=== PATIENT | male | born 1995 | race Two or more races ===

== ENCOUNTER → 2018-08-24 | Outpatient (REF) | payer BC ==
[2018-08-24 19:26] LABS: INFLUENZA A AMPLIFICATION NEGATIVE (NEGATIVE); INFLUENZA B AMPLIFICATION NEGATIVE (NEGATIVE)
== END ==
LOC: M LAB REF 09:55
PROVIDERS: ATTEND Physician Assistant Medical
DX: J11.1 Influenza due to unidentified influenza virus with other respiratory manifestations (principal)

== ENCOUNTER → 2019-01-02 | Outpatient (REF) | payer BC | LOC: M LAB REF 15:38 | PROVIDERS: ATTEND Physician Assistant | DX: J02.9 Acute pharyngitis, unspecified (principal) ==

== ENCOUNTER 2022-04-18 06:15 | Inpatient (IN) | payer BC, MEDICAID ==
[~2022-04-18] VITALS: Ht 177.8 cm; Wt 74.5 kg
[2022-04-18 06:52] LABS: HEMATOCRIT 48.6 % (42.0-52.0); HEMOGLOBIN 16.5 g/dl (13.5-17.5); MEAN CORPUSCULAR VOLUME 94.4 fl (80.0-96.0); PLATELET COUNT, AUTOMATED 196 10^3/uL (150-450); RED BLOOD COUNT 5.15 10^6/uL (4.30-6.10); WHITE BLOOD COUNT 5.1 10^3/uL (4.0-10.0)
[2022-04-18] MEDS ORDERED: NICOTINE 14 MG/24 HR TRANSDERMAL TD ONE (07:20)
[2022-04-18 07:25] LABS: RSV AMPLIFICATION NEGATIVE (NEGATIVE)
[2022-04-18 07:28] LABS: AMPHETAMINES LEVEL URINE NEGATIVE (NEGATIVE); BARBITURATES URINE NEGATIVE (NEGATIVE); BENZODIAZEPINES URINE NEGATIVE (NEGATIVE); CANNABINOIDS URINE POSITIVE (NEGATIVE); COCAINE METABOLITE URINE POSITIVE (NEGATIVE); METHADONE URINE NEGATIVE (NEGATIVE); OPIATES URINE NEGATIVE (NEGATIVE); PHENCYCLIDINE URINE NEGATIVE (NEGATIVE)
[2022-04-18 07:34] LABS: ALBUMIN 4.5 GM/DL (3.2-5.2); ALT/SGPT 18 U/L (12-78); BILIRUBIN,DIRECT 0.2 MG/DL (0.0-0.2); BILIRUBIN,TOTAL 0.6 MG/DL (0.2-1.0); BLOOD UREA NITROGEN 12 MG/DL (7-18); CARBON DIOXIDE LEVEL 27 MEQ/L (21-32); CHLORIDE LEVEL 108 MEQ/L (98-107); CREATININE FOR GFR 0.99 MG/DL (0.70-1.30); GLOMERULAR FILTRATION RATE > 60.0 (>60); GLUCOSE, FASTING 91 MG/DL (70-100); POTASSIUM SERUM 3.8 MEQ/L (3.5-5.1); SALICYLATE LEVEL 2.1 MG/DL (5.0-30.0); SODIUM LEVEL 141 MEQ/L (136-145); THYROID STIMULATING HORMONE 0.447 uIU/ML (0.358-3.740); TOTAL PROTEIN 7.5 GM/DL (6.4-8.2)
[2022-04-18 07:35] LABS: ACETAMINOPHEN LEVEL < 2.0 UG/ML (10.0-30.0)
[2022-04-18] MEDS ORDERED: OLANZapine ORAL DISINTEGRATING TAB 5MG PO ONE (09:00)
[2022-04-18] MEDS ORDERED: ST J300C2 PO (10:06)
[2022-04-18] MEDS ORDERED: HOME MED LIST COMPLETE! XX SCH (10:10)
[2022-04-18] MEDS ORDERED: LORazepam 2 MG TAB PO STA (17:27)
[2022-04-19] MEDS: THIAMINE 100 MG TAB PO SCH ×2 (09:00→20:44)
[2022-04-19] MEDS: FOLIC ACID 1MG TAB PO SCH (09:00)
[2022-04-19] MEDS: MULTIVITAMINS/MINERALS THERAP 1 TAB PO SCH (09:00)
[2022-04-19] MEDS ORDERED: NICOTINE 21MG/24HR 1 EA TRANSDERMAL TD ONE (09:25)
[2022-04-19] MEDS ORDERED: LORazepam 2 MG TAB PO ONE (09:55)
[2022-04-19] MEDS ORDERED: IBUPROFEN 400MG TAB PO PRN (12:50)
[2022-04-19] MEDS ORDERED: MOM 30ML SUSPENSION UDC PO PRN (12:50)
[2022-04-19] MEDS ORDERED: MAALOX 30 ML SUSP *UDC PO PRN (12:50)
[2022-04-19] MEDS ORDERED: LORazepam 2 MG TAB PO PRN (12:50)
[2022-04-19] MEDS ORDERED: traZODone 50 MG TAB PO PRN (12:50)
[2022-04-19 15:27] VITALS: BP 136/83
[2022-04-19] MEDS: LORazepam 1 MG TAB PO PRN (18:27)
[2022-04-19 22:00] VITALS: BP 136/83
[2022-04-20] MEDS ORDERED: MIRTAZAPINE 15 MG TAB PO PRN
[2022-04-20 06:00] VITALS: BP 138/70
[2022-04-20] MEDS: THIAMINE 100 MG TAB PO SCH (08:42)
[2022-04-20] MEDS: MULTIVITAMINS/MINERALS THERAP 1 TAB PO SCH (08:42)
[2022-04-20] MEDS: FOLIC ACID 1MG TAB PO SCH (08:42)
[2022-04-20] MEDS: LORazepam 1 MG TAB PO PRN (08:46)
[2022-04-20] MEDS ORDERED: NALTREXONE 50 MG TAB PO SCH (09:00)
[2022-04-20] MEDS ORDERED: NICOTINE 21MG/24HR 1 EA TRANSDERMAL TD SCH (09:00)
[2022-04-20] MEDS ORDERED: hydrOXYzine 50 MG TAB PO PRN (10:00)
[2022-04-20] MEDS ORDERED: NICO21PAT TD (11:04)
[2022-04-20] MEDS ORDERED: NALT50TA4 PO (11:04)
[2022-04-20] MEDS ORDERED: TRAZ-252 PO (11:04)
[2022-04-20] MEDS ORDERED: HYDR50TA70 PO (11:04)
== END 2022-04-20 13:37 | disposition home or self-care (01) | DRG 754 ==
LOC: M ED 06:15 → M ED INP 04-19 12:49 → M PSY 04-19 14:56
PROVIDERS: ADMIT Student in an Organized Health Care Education/Training Program; ATTEND Student in an Organized Health Care Education/Training Program
DX: F43.21 Adjustment disorder with depressed mood (principal); F10.10 Alcohol abuse, uncomplicated; F14.90 Cocaine use, unspecified, uncomplicated; F17.210 Nicotine dependence, cigarettes, uncomplicated